=== PATIENT | female | born 1980 | race Caucasian/White ===

== ENCOUNTER 2016-07-18 21:02 | Emergency (ER) | payer OTHER ==
[2016-07-18 21:15] VITALS: BP 110/70; PULSE 86; TEMP 98.4; BMI 26.4
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
[2016-07-18] MEDS ORDERED: ACETAMINOPHEN 325 MG TABLET (FP) PO ONE (21:30)
[2016-07-18] MEDS ORDERED: ACETAMINOPHEN 325 MG TABLET (FP) ONE (21:31)
== END 2016-07-18 22:50 | disposition home or self-care (01) ==
LOC: JERFT 21:02 → JER 21:02 → JERFT 22:50
DX: S05.11XA Contusion of eyeball and orbital tissues, right eye, initial encounter (principal); Y04.2XXA Assault by strike against or bumped into by another person, initial encounter; Y93.89 Activity, other specified; Y92.89 Other specified places as the place of occurrence of the external cause; Y07.9 Unspecified perpetrator of maltreatment and neglect
CPT/HCPCS: 70486-TC; 84703; 99281-25